=== PATIENT | female | born 1935 | race Caucasian/White ===

== ENCOUNTER 2019-08-23 15:51 | Inpatient (IN) | payer MEDICARE ==
--- NOTE | 2019-08-23 16:52 | ULT ---
ULTRASOUND DOPPLER DUPLEX VENOUS LEFT LOWER EXTREMITY: DATE: 08/23/2019 HISTORY: Left lower extremity pain in 84-year-old female TECHNIQUE: Grayscale, color-flow, and spectral analysis, of major veins of left lower extremity. FINDINGS: There is demonstration of blood flow with normal compressibility, of the left common femoral, profund a femoral, greater saphenous, femoral, popliteal, and posterior tibial, veins. IMPRESSION: Negative. No deep venous thrombosis of left lower extremity.
[2019-08-23] MEDS ORDERED: Clindamycin/D5W 900 mg/50 ml Premix Bag ONE (18:05)
[2019-08-23] MEDS ORDERED: Senokot S 8.6-50 MG TAB PO PRN (19:20)
[2019-08-23] MEDS: Famotidine 20 MG TAB PO SCH (20:30)
[2019-08-23] MEDS: Acetaminophen 325 MG TAB PO PRN (20:30)
[2019-08-23 21:13] VITALS: BMI 18.4
--- NOTE | 2019-08-23 22:06 | HP ---
PRIMARY CARE PHYSICIAN: Dr. Benitez. CHIEF COMPLAINT: Pain and swelling to left lower leg x3 days. HISTORY OF PRESENT ILLNESS: Ms. Uriarte is an 84-year-old female who initially went to the [place] [facility] via EMS with a chief complaint of pain and swelling to left lower leg x3 days. She describes the pain as aching associated with some open wounds. Reports that her software database architect earlier in the week gave her some doxycycline, which she had taken 6 doses of for right foot ulceration. She also has a wound to the left foot on the left dorsum with a shallow ulceration. She reports that she has had some ongoing issues with PVD and reports a history of a DVT over 30 years ago. She reports that after she started the doxycycline, reports that the right foot has looked much better. She has seen Wound Care in [place] in the past. Reports that she saw them twice a week, but she states she is unable to do the wound dressing by herself when they wrap it up and is open to seeing them again once discharged from here. She was initially sent to [facility] for further evaluation and ultrasound of her leg to make sure that she did not have a DVT, this was done and was negative. She had Homans positive sign on the left, trace edema to the left knee down, left foot with some thickening of the skin. Lab work; she has pancytopenia, white blood cell count was 3, hemoglobin 11.8, hematocrit 38.2, and platelet count was 100. Chloride 108, BUN 32. BNP 169. Reports she has a past medical history pertinent for hypertension, hyperlipidemia. Takes medication for anxiety and an aspirin daily. She also has a history of COPD with asthma. Smokes, she is down to three cigarettes a day. She was given vancomycin and clindamycin here and then admitted for cellulitis. REVIEW OF SYSTEMS: The patient denies any chills or fever. Denies any chest pain or palpitations. Has a chronic cough. Denies any shortness of breath. Denies abdominal pain, nausea, vomiting, or diarrhea. Has some left lower extremity swelling and redness. All other systems are reviewed and are negative unless mentioned above in her HPI. PAST MEDICAL HISTORY: Angina, myocardial infarction, has a pacemaker, hyperlipidemia, hypertension, PVD, had a DVT in the past and has varicose leg ulcers. PAST SURGICAL HISTORY: Pacemaker placement. PSYCHIATRIC HISTORY: Anxiety. SOCIAL HISTORY: She uses tobacco, she reports that she smokes three a day. She lives at home alone. PHYSICAL EXAMINATION: VITAL SIGNS: Blood pressure is 138/88, pulse is 71, respirations are 22, pO2 sats are 97% on room air. GENERAL: The patient is nontoxic appearing. She is alert and oriented to person, place, and time, is in no apparent distress. HEENT: Head is atraumatic and normocephalic. Eyes; eyelids are normal to inspection. Pupils equally round and reactive to light. ENT, mouth exam is normal. Mucous membranes are moist. Dentition is poor, has very few teeth left. RESPIRATORY/CHEST: She has some very scattered occasional wheezing to all 4 quadrants. Chest movement is symmetrical. CARDIOVASCULAR: Regular heart rate and rhythm. Heart sounds are normal. ABDOMEN: Nontender. Bowel sounds are heard. BACK: Normal range of motion. No tenderness. EXTREMITIES: Upper extremities; normal inspection, normal range of motion, radial pulses normal. Lower extremities; normal range of motion, sensation intact, pedal pulses normal. She has some edema to bilateral lower extremities. Trace edema, right lower. +1 edema on the left lower extremity. She has some calf tenderness to the left lower extremity. A shallow ulceration visualized to the right medial malleolus with a small associated surrounding cellulitis. NEUROLOGICAL: The patient is oriented to person, place, and time. Speech is normal. SKIN: Warm, dry, normal in color except for lower extremity findings as above. PSYCH: She is oriented to person, place, and time. ASSESSMENT AND PLAN: 1. Cellulitis, bilateral lower extremities with some shallow ulcerations. We will change antibiotics to Rocephin 1 g daily. We will ask PT to evaluate. We will ask Wound Care to evaluate. We will ask Case Management to start paperwork on home health and/or wound management as recommended after evaluation. 2. History of hypertension. We will restart home medications. 3. History of hyperlipidemia. We will restart home medications. 4. History of anxiety and insomnia. We will restart home medications once reconciled. 5. Smoking cessation has been given. 6. Case discussed with Dr. Friend who agrees with plan. 7. Hospital course dependent on clinical findings. Job ID: [id number]
[2019-08-24] MEDS: Acetaminophen 325 MG TAB PO PRN ×2 (00:54→00:57)
[2019-08-24 06:02] LABS: Anion Gap 12 mmol/L (10-20); BUN (Urea Nitrogen) 26 mg/dL (9.8-20.1); Calc. Creatinine Clearance 49 mL/min (70-130); Calcium 8.7 mg/dL (7.8-10.44); Carbon Dioxide 24 mmol/L (23-31); Chloride 107 mmol/L (98-107); Estimated GFR-MDRD 68; Glucose 97 mg/dL (83-110); Potassium 3.9 mmol/L (3.5-5.1); Sodium 139 mmol/L (136-145)
[2019-08-24 06:13] LABS: #Lymphocytes 0.2 thou/uL (1.20-3.40); #Monocytes 0.2 thou/uL (0.11-0.59); #Neutrophils 2.1 thou/uL (1.40-6.50); %Basophils 0.3 % (0.0-1.0); %Eosinophils 1.7 % (0.0-10.0); %Lymphocytes 9.4 % (21.0-51.0); %Monocytes 7.9 % (0.0-10.0); %Neutrophils 80.8 % (42.0-75.0); Elliptocytes SLIGHT = 2-5 cells (100X) (0-1/hpf); Hemoglobin 11.6 g/dL (12.0-16.0); MDiff Complete? YES; Mean Corpuscular HGB CONC 32.4 g/dL (32.0-36.0); Mean Corpuscular Hemoglobin 30.5 pg (27.0-31.0); Mean Corpuscular Volume 94.2 fL (78.0-98.0); Mean Platelet Volume 8.5 fL (7.4-10.4); Platelet Count 77 thou/uL (130-400); Platelet Morphology Comment Appears Decreased; RBC Distribution Width 12.9 % (11.5-14.5); Red Blood Cell (RBC) Count 3.79 mill/uL (4.20-5.40); White Blood Cell (WBC) Count 2.6 thou/uL (4.8-10.8)
[2019-08-24] MEDS: Famotidine 20 MG TAB PO SCH ×2 (08:09→20:22)
[2019-08-24] MEDS ORDERED: Carvedilol 3.125 MG TAB PO SCH ×2 (10:15→21:00)
[2019-08-24] MEDS ORDERED: Amlodipine 5 MG TAB PO SCH (10:15)
[2019-08-24] MEDS ORDERED: Aspirin Chewable 81 MG TAB PO SCH ×3 (10:15→21:00)
[2019-08-24] MEDS ORDERED: Acetaminophen/Codeine 30-300mg Tablet PO PRN (11:38)
[2019-08-24] MEDS ORDERED: traZODone HCl 50 MG TAB PO PRN (11:38)
[2019-08-24] MEDS ORDERED: ALPRAZolam 1 MG TAB PO PRN (11:38)
[2019-08-24] MEDS ORDERED: Sodium Chloride 0.9% 500 ML IV SCH (12:15)
[2019-08-24 12:52] LABS: ALT (SGPT) 11 U/L (8-55); AST (SGOT) 19 U/L (5-34); Albumin 3.5 g/dL (3.4-4.8); Alkaline Phosphatase 84 U/L (40-110); Bilirubin, Direct 0.3 mg/dL (0.1-0.3); Bilirubin, Total 0.6 mg/dL (0.2-1.2); Protein, Total 5.8 g/dL (6.0-8.3)
[2019-08-24 13:11] LABS: Vitamin D, 25 Hydroxy 14.6 ng/ml (> 30.0)
--- NOTE | 2019-08-24 14:58 | PDOC.HOSPP ---
- Subjective Encounter Date: 08/24/19 Encounter Time: 13:00 Subjective: pt up in bed does not have any pain. - Objective Vital Signs & Weight: Vital Signs (12 hours) Temp Pulse Resp BP BP BP Pulse Ox 08/24/19 14:20 72 16 96 08/24/19 11:22 98.3 F 87 18 90/58 L 94 L 08/24/19 10:19 80 138/74 08/24/19 08:00 94 L 08/24/19 07:41 98.3 F 80 18 138/74 94 L 08/24/19 07:00 86 16 96 08/24/19 04:24 98.2 F 86 18 115/70 94 L Weight Weight 128 lb 11.999 oz I&O: 08/23/19 08/24/19 08/25/19 06:59 06:59 06:59 Intake Total 400 Balance 400 Result Diagrams: 08/24/19 05:30 08/24/19 05:30 Hospitalist ROS - Review of Systems Cardiovascular: denies: chest pain, palpitations, orthopnea, paroxysmal noc. dyspnea, edema, light headedness, other Gastrointestinal: denies: nausea, vomiting, abdominal pain, diarrhea, constipation, melena, hematochezia, other Genitourinary: denies: dysuria, frequency, incontinence, hematuria, retention, other Musculoskeletal: denies: neck pain, shoulder pain, arm pain, back pain, hand pain, leg pain, foot pain, other - Medication Medications: Active Medications Generic Name Dose Route Start Last Admin Trade Name Freq PRN Reason Stop Dose Admin Acetaminophen 650 mg 08/23/19 19:20 08/24/19 00:57 Tylenol PO 650 mg Q4H PRN Administration Headache/Fever/Mild Pain (1-3) Albuterol/Ipratropium 3 ml 08/24/19 01:00 08/24/19 14:20 Duoneb NEB 3 ml [id number] MALAIKA Administration Famotidine 20 mg 08/23/19 21:00 08/24/19 08:09 Pepcid PO 20 mg BID MALAIKA Administration - Exam Neck: negative: supple, symmetric, no JVD, no thyromegaly, no lymphadenopathy, no carotid bruit, JVD Heart: negative: RRR, no murmur, no gallops, no rubs, normal peripheral pulses, irregular, diminshed peripheral pulses, murmur present, II/IV, III/IV Respiratory: negative: CTAB, no wheezes, no rales, no ronchi, normal chest expansion, no tachypnea, normal percussion, rales, rhonchi, tachypneic, wheezes Gastrointestinal: soft Gastrointestinal - other findings: pain on palpation or ruq Hosp A/P (1) Cellulitis Code(s): L03.90 - CELLULITIS, UNSPECIFIED Status: Acute (2) Right upper quadrant pain Code(s): R10.11 - RIGHT UPPER QUADRANT PAIN Status: Acute (3) Pancytopenia Code(s): D61.818 - OTHER PANCYTOPENIA Status: Acute - Plan pt nguyen not have cellulites, she has chronic healed wounds. Wound care saw her while addressing her chronic wounds. She however has not been eating much since she cannot see. she has no family members to help her. she has pancytopenia. will check vit b12 and vit d. will get a ruq ultrasound. will get case management for home health. she does have a physician who does home visits. Her d-dimer was high she states she is is allergic to contrast if so she will need a v/q scan.
[2019-08-24] MEDS ORDERED: Cyanocobalamin (Vitamin B-12) 1,000 MCG TAB PO SCH (15:00)
--- NOTE | 2019-08-24 16:43 | ULT ---
ULTRASOUND ABDOMEN LIMITED: (RIGHT UPPER QUADRANT) DATE: 08/24/2019 HISTORY: 84-year-old female with right upper quadrant abdominal pain FINDINGS: Gallbladder: Normal wall thickness. No gallstones or sludge identified. No pericholecystic fluid. Liver: Normal parenchymal echogenicity. Right kidney: No hydronephrosis. 5 x 4 x 5 cm complex cyst. Pancreas: Visualized, with no gross sonographic abnormality identified (although ultrasound is relati vely insensitive for the detection of pancreatic pathology compared to CT and MRI.), Except for minimally dilated pancreatic duct caliber up to 3 mm. Common duct caliber: 4 mm. IMPRESSION: 1) 5 cm complex right renal cyst. 2) No sonographic evidence of cholelithiasis or acute cholecystitis.
[2019-08-24] MEDS: Carvedilol 3.125 MG TAB PO SCH (20:23)
[2019-08-24] MEDS ORDERED: cefTRIAXone\\ROCEPHIN 1 GM in Sodium Chloride 0.9% 100 ML IVPB SCH (21:00)
[2019-08-24] MEDS ORDERED: Atorvastatin Calcium 20 MG TAB PO SCH (21:00)
[2019-08-25] MEDS: Carvedilol 3.125 MG TAB PO SCH (08:32)
[2019-08-25] MEDS: Famotidine 20 MG TAB PO SCH (08:32)
[2019-08-25] MEDS ORDERED: Cholecalciferol (Vitamin D3) 400 UNITS TAB PO SCH (09:00)
[2019-08-25] MEDS ORDERED: Non-Formulary Item 1 EACH (Amlodipine Besylate [Amlodipine Besylate] 2.5 MG) PO SCH (09:00)
[2019-08-25] MEDS ORDERED: Aspirin Chewable 81 MG TAB PO SCH (09:00)
[2019-08-25] MEDS ORDERED: Amlodipine 5 MG TAB PO SCH (09:00)
[2019-08-25] MEDS ORDERED: Cyanocobalamin (Vitamin B-12) 1,000 MCG TAB PO SCH (09:00)
--- NOTE | 2019-08-25 09:51 | PDOC.HOSPP ---
- Subjective Encounter Date: 08/25/19 Encounter Time: 09:00 Subjective: Patient with resolution of the redness in her left leg. No pain. Ready to go home. Been ambulating the hallways without difficulty. No fever or other symptoms. She states the RUQ pain yesterday was just a stomach cramp and it resolved completely. - Objective Vital Signs & Weight: Vital Signs (12 hours) Temp Pulse Resp BP Pulse Ox 08/25/19 08:33 72 08/25/19 07:35 98.1 F 72 20 109/69 94 L 08/25/19 06:47 71 16 97 08/25/19 01:40 69 14 96 Weight Weight 128 lb 11.999 oz I&O: 08/24/19 08/25/19 08/26/19 06:59 06:59 06:59 Intake Total 400 1720 Balance 400 1720 Result Diagrams: 08/24/19 05:30 08/24/19 05:30 Hospitalist ROS - Review of Systems Constitutional: denies: fever, chills Respiratory: denies: cough, dry, shortness of breath Cardiovascular: denies: chest pain, palpitations, orthopnea Gastrointestinal: denies: nausea, vomiting, abdominal pain Genitourinary: denies: dysuria, hematuria Skin: reports: lesions - Medication Medications: Active Medications Generic Name Dose Route Start Last Admin Trade Name Freq PRN Reason Stop Dose Admin Acetaminophen 650 mg 08/23/19 19:20 08/24/19 00:57 Tylenol PO 650 mg Q4H PRN Administration Headache/Fever/Mild Pain (1-3) Acetaminophen/Codeine Phosphate 1 tab 08/24/19 11:38 08/24/19 20:23 Tylenol #3 PO 1 tab Q8H PRN Administration Moderate Pain (4-6) Albuterol/Ipratropium 3 ml 08/24/19 01:00 08/25/19 06:47 Duoneb NEB 3 ml [id number] MALAIKA Administration Amlodipine Besylate 2.5 mg 08/25/19 09:00 08/25/19 08:33 Norvasc PO Not Given DAILY MALAIKA Aspirin 162 mg 08/25/19 09:00 08/25/19 08:32 Aspirin Chewable PO 162 mg DAILY MALAIKA Administration Atorvastatin Calcium 20 mg 08/24/19 21:00 08/24/19 20:22 Lipitor PO 20 mg HS MALAIKA Administration Carvedilol 3.125 mg 08/24/19 21:00 08/25/19 08:32 Coreg PO 3.125 mg BID MALAIKA Administration Cholecalciferol 400 units 08/25/19 09:00 08/25/19 08:33 Vitamin D PO 400 units DAILY MALAIKA Administration Cyanocobalamin 1,000 mcg 08/25/19 09:00 08/25/19 08:32 Vitamin B-12 PO 1,000 mcg DAILY MALAIKA Administration Famotidine 20 mg 08/23/19 21:00 08/25/19 08:32 Pepcid PO 20 mg BID MALAIKA Administration Ceftriaxone Sodium 1 gm/ 100 mls @ 200 mls/hr 08/24/19 21:00 08/24/19 20:20 Sodium Chloride IVPB 100 mls 2100 MALAIKA Administration Trazodone HCl 50 mg 08/24/19 11:38 08/24/19 20:22 Desyrel PO 50 mg HSPRN PRN Administration Insomnia - Exam General Appearance: NAD, awake alert Eye: anicteric sclera ENT: moist mucosa Heart: RRR, no murmur, no gallops, no rubs Respiratory: CTAB, no wheezes, no rales, no ronchi Gastrointestinal: soft, non-tender, non-distended, normal bowel sounds Extremities: no edema Skin - other findings: shallow ulcerations on bilateral feet, no redness or evidence infection Psychiatric: normal affect, normal behavior, A&O x 3 Hosp A/P (1) Cellulitis Code(s): L03.90 - CELLULITIS, UNSPECIFIED Status: Resolved (2) Pancytopenia Code(s): D61.818 - OTHER PANCYTOPENIA Status: Acute (3) Right upper quadrant pain Code(s): R10.11 - RIGHT UPPER QUADRANT PAIN Status: Resolved (4) CAD (coronary artery disease) Code(s): I25.10 - ATHSCL HEART DISEASE OF [place] CORONARY ARTERY W/O ANG PCTRS Status: Chronic (5) HTN (hypertension) Code(s): I10 - ESSENTIAL (PRIMARY) HYPERTENSION Status: Chronic (6) HLD (hyperlipidemia) Code(s): E78.5 - HYPERLIPIDEMIA, UNSPECIFIED Status: Chronic (7) PVD (peripheral vascular disease) Code(s): I73.9 - PERIPHERAL VASCULAR DISEASE, UNSPECIFIED Status: Chronic - Plan Patient with negative U/S of LE. Swelling likely due to venous damage from DVT in the past. Now resolved Cellulitis- resolved with Rocephin, can transition to Omnicef Pancytopenia- mild, stable Patient to f/u with her pillowcase folder office in the next few days DVT proph- SCDs in place
[2019-08-25 12:14] VITALS: BP 115/72; TEMP 98.2
--- NOTE | 2019-08-25 16:25 | DIS ---
DATE OF ADMISSION: 08/23/2019 DATE OF DISCHARGE: 08/25/2019 PRIMARY CARE PHYSICIAN: Dr. Benitez as a ground helper street railway in [place]. REASON FOR ADMISSION: Pain and swelling to left lower. DIAGNOSES AT DISCHARGE: 1. Cellulitis, resolved. 2. Left lower extremity edema, resolved. 3. Bilateral foot ulcers, chronic. 4. Pancytopenia. 5. Coronary artery disease. 6. Hypertension. 7. Hyperlipidemia. 8. Peripheral vascular disease. PROCEDURES: 1. Ultrasound left lower extremity showing no evidence for deep venous thrombosis of the left lower extremity. 2. Ultrasound of the abdomen showing a 5 cm complex right renal cyst, but no sonographic evidence of cholelithiasis or acute cholecystitis. CONSULTATIONS: None. SUMMARY OF HOSPITAL COURSE: This is an 84-year-old female with a history of peripheral vascular disease and ulcers on her feet, who sees her ground helper street railway regularly for management of most of her medical issues. She developed some pain and swelling in the left lower leg for at least three days prior to admission, went to see her ground helper street railway, who started her on doxycycline. She took about six doses for that. She say she does not feel like that it made her lower extremity any better. There was swelling and there was also some redness starting. The patient had initially reported that the doxycycline helped on her H and P, but now she is reporting that was until she got IV antibiotics in the hospital that the redness started to resolve. She was seen at outside emergency room, had no leukocytosis, but did have a positive Homans, so she was transferred here for ultrasound. Ultrasound was done, it was negative for DVT. The patient also had some right upper quadrant cramping pains during her hospitalization, but these resolved spontaneously and an ultrasound was negative. On the day of discharge, the redness of her left lower extremity and swelling at all resolved completely. She states it is all back to normal. She does have a little bit of an ulceration on the left foot on the top of the foot without any evidence of infection surrounding it and then an older ulcer on her right foot that has been healing. She has been ambulating the hallways well without difficulty and is eager to go home. DISCHARGE MANAGEMENT: Discharged home with home health, [facility] for wound care. ACTIVITY: As tolerated. DIET: Regular diet. FOLLOWUP: With ground helper street railway in her office within the next week. DISCHARGE MEDICATIONS: 1. Cefdinir 300 mg twice a day, 16 capsules dispensed for a total of 10 days of antibiotics. 2. Tylenol with Codeine as needed. 3. Alprazolam 0.5 mg two tablets every 8 hours as needed. 4. Amlodipine 2.5 mg daily. 5. Aspirin 162 mg daily. 6. Atorvastatin 20 mg at night. 7. Carvedilol 3.125 mg twice a day. 8. Nitroglycerin patch 0.2 mg transdermal daily to be removed at night. 9. Trazodone 50 mg at night. TIME SPENT: Arranging the details of this dictation took 32 minutes. Job ID: [id number]
[2019-08-26] MEDS ORDERED: Nitroglycerin 0.2mg/Hour PATCH TD SCH (09:00)
[2019-08-26] MEDS ORDERED: Aspirin 81 mg Enteric Coated Tablet PO SCH (09:00)
[2019-08-31] MEDS ORDERED: Ergocalciferol 1.25 MG(50,000 UNITS) CAP PO SCH (09:00)
== END 2019-08-25 14:16 | disposition home health service (06) | DRG 603 ==
LOC: ERS 15:51 → T4-B 18:23
PROVIDERS: ADMIT Internal Medicine; ATTEND Internal Medicine
DX: L03.116 Cellulitis of left lower limb (principal); D61.818 Other pancytopenia; J44.9 Chronic obstructive pulmonary disease, unspecified; F17.210 Nicotine dependence, cigarettes, uncomplicated; I10 Essential (primary) hypertension; E78.5 Hyperlipidemia, unspecified; F41.9 Anxiety disorder, unspecified; E78.00 Pure hypercholesterolemia, unspecified; R10.11 Right upper quadrant pain; I25.10 Atherosclerotic heart disease of native coronary artery without angina pectoris; I73.9 Peripheral vascular disease, unspecified; L97.529 Non-pressure chronic ulcer of other part of left foot with unspecified severity; L97.519 Non-pressure chronic ulcer of other part of right foot with unspecified severity; G47.00 Insomnia, unspecified; Z95.0 Presence of cardiac pacemaker; Z86.718 Personal history of other venous thrombosis and embolism; I25.2 Old myocardial infarction; Z79.899 Other long term (current) drug therapy; L03.115 Cellulitis of right lower limb
CPT/HCPCS: 36415; 76705; 80048; 80076; 82306; 82607; 85025; 96365; J0696; J3490; J7620